=== PATIENT | female | born 2000 | race Caucasian/White ===

== ENCOUNTER 2021-03-08 03:55 | Emergency (ER) | payer SELFPAY ==
[2021-03-08] MEDS ORDERED: LODINE CAP 300300 MG PO (05:13)
[2021-03-08] MEDS ORDERED: ZOFRAN ODT 4 MG4 MG PO (05:13)
[2021-03-08] MEDS ORDERED: PROVENTIL HFA6.7 GM INH (05:13)
== END 2021-03-08 05:20 | disposition home or self-care (01) ==
LOC: ER1 03:55
DX: U07.1 COVID-19 (principal); Z88.0 Allergy status to penicillin
CPT/HCPCS: 71045; 87081; 87880; 99283